=== PATIENT | male | born 1995 | race African-American/Black ===

== ENCOUNTER 2024-10-08 07:34 | Emergency (ER) | payer MEDICAID, OTHER ==
[~2024-10-08] VITALS: Ht 180.3 cm; Wt 79.0 kg
[~2024-10-08 07:34] MED LIST: NOCURR
[2024-10-08 07:37] VITALS: TEMP 97.5
[2024-10-08] MEDS ORDERED: IBUP-1492 PO (09:03)
[2024-10-08] MEDS ORDERED: AMOX500C2 PO (09:03)
[2024-10-08] MEDS: IBUPROFEN 600 MG TABLET PO ONE (09:08)
[2024-10-08] MEDS: AMOXICILLIN TRIHYDRATE 250 MG CAPSULE PO ONE (09:08)
[2024-10-08 09:25] VITALS: BP 130/83; PULSE 90; RESP 18; O2SAT 100
== END 2024-10-08 09:42 | disposition home or self-care (01) ==
LOC: EMS 08:00
DX: R59.9 Enlarged lymph nodes, unspecified (principal); F17.210 Nicotine dependence, cigarettes, uncomplicated; F15.90 Other stimulant use, unspecified, uncomplicated; F14.90 Cocaine use, unspecified, uncomplicated
CPT/HCPCS: 99283